=== PATIENT | male | born 1955 | race Caucasian/White ===

== ENCOUNTER 2021-02-10 06:24 | Day surgery (SDC) | payer OTHER ==
[~2021-02-10] VITALS: Ht 167.6 cm; Wt 86.4 kg
[2021-02-10 07:04] VITALS: BP 100/63; Ht 167.6 cm; Wt 86.4 kg
[2021-02-10] MEDS ORDERED: BAYER CHEWABLE81 MG (07:09)
[2021-02-10] MEDS ORDERED: LIPITOR40 MG (07:10)
[2021-02-10] MEDS ORDERED: CHLORTHALIDONE25 MG (07:11)
[2021-02-10] MEDS ORDERED: ZYRTEC10 MG (07:11)
[2021-02-10] MEDS ORDERED: LISINOPRIL20 MG (07:12)
[2021-02-10] MEDS ORDERED: TOPROL XL100 MG (07:13)
[2021-02-10] MEDS ORDERED: NITROSTAT0.4 MG (07:14)
[2021-02-10] MEDS ORDERED: SINGULAIR10 MG (07:14)
--- NOTE | 2021-02-10 09:32 | HP ---
PATIENT: RONAL BARBER MEDICAL RECORD: [id number] ACCOUNT: [id number] [facility] 55 ADMISSION DATE: 02/10/21 PCP: No PCP HISTORY AND PHYSICAL EXAMINATION HISTORY OF PRESENT ILLNESS: The patient states he feels like he has something stuck in his throat. It is difficult to swallow. It really does not cause pain with swallowing. His reflux is controlled on a PPI. He does not have volume reflux. He does have an umbilical hernia. No epigastric pain. He does have a diastasis rectus. He states he has had these symptoms since 2004. PAST MEDICAL AND SURGICAL HISTORY: History of myocardial infarction, hypertension. He has had a pacemaker, history of coronary stent, gastroesophageal reflux, arthritis. Benign prostatic hypertrophy, also COPD, coronary artery disease, hypercholesterolemia. SOCIAL HISTORY: Former smoker, [place]. HOME MEDICINES: Reviewed. ALLERGIES: VERAPAMIL. PHYSICAL EXAMINATION: GENERAL: The patient does not appear acutely ill. He does not appear chronically ill. VITAL SIGNS: Reviewed. EARS: External ears appear normal. EYES: Extraocular movements are intact. NECK: Trachea is midline. CHEST: No intercostal retractions. PULMONARY: Nonlabored. No stridor. IMPRESSION: 1. Dysphagia. 2. The sensation of something stuck in the back of his throat. PLAN: EGD with esophageal dilation. TRANSINT:[id number] Voice Confirmation ID: [id number] DOCUMENT ID: [id number] BETZAIDA LOCKETT MD at 0932 CC: [id number] DICTATION DATE: 02/10/21905 DESIZING PAD OPERATOR: 02/10/21 0921 [facility] [address] [id number]
--- NOTE | 2021-02-10 10:42 | NUR ---
1033 PROVIDED WITH DISCHARGE INFORMATION INCLUDING SHEET LISTING NSAIDS TO AVOID, MED REC, & [facility] POSTENDOSCOPY D/C INSTRUCTIONS. COPIES OF H&P, PROGRESS NOTE & OP NOTE SENT TO [facility] WITH PT WELL. RELEASED FROM OPS IN W/C WITH [facility] GUARDS X'S 2 TO [facility] V[facility]. Neri PERRY R.N.
--- NOTE | 2021-02-12 15:16 | OP ---
PATIENT NAME: RONAL BARBER MEDICAL RECORD: [id number] :55 LOCATION:D[facility] ADMISSION DATE: SURGEON: BETZAIDA LOCKETT MD DATE OF OPERATION: 02/10/2021 PREOPERATIVE DIAGNOSES: 1. Dysphagia. 2. Globus feeling in his throat. POSTOPERATIVE DIAGNOSES: 1. Dysphagia. 2. Globus feeling in his throat. 3. No structural abnormality noted. There is an inlet patch, small hiatal hernia, normal stomach, otherwise normal duodenum. PROCEDURE PERFORMED: 1. Esophagogastroduodenoscopy with antral biopsies to rule out Helicobacter pylori. 2. Esophageal dilation with a 60-Brazilian zvuxywm-pqq-wfhzzyiu balloon. SURGEON: Dr. Lockett. STATION MECHANIC HELPER: None. BLOOD LOSS: Minimal. ANESTHESIA: IV sedation. COMPLICATIONS: None. The risks, possible complications, and alternatives of procedure were explained to the patient. He elects to proceed. The discussion specifically included, but was not limited to bleeding requiring emergency reoperation, infection, endoscopic perforation. ENDOSCOPIC COURSE: The patient was conveyed to endoscopy suite electively on 02/10/2021. IV sedation was induced by the anesthesia staff. A bite block was inserted. A gastroscope was inserted into the mouth. It was advanced easily into the hypopharynx. The esophagus was easily intubated as were the stomach and duodenum. Upon withdrawal, retroflexed and angulus views were obtained. Antral biopsies were obtained to rule out H. pylori. I then traveled up the esophagus into the hypopharynx back down 3 times searching for anything that could be causing his symptoms. The hypopharynx appeared normal. The cords appeared normal. I noted no Meckel's diverticulum. There was an inlet patch that was about 7-8 cm down his esophagus and this was at the 3 o'clock position and is very unlikely to be causing his symptoms. I then advanced in the cardia of the stomach. I advanced iipbllr-uls-eqhyktng balloon. I sequentially dilated the entire length of the esophagus to 60-Brazilian. The balloon dilator and gastroscope were then withdrawn. I then readvanced the gastroscope. Again, I found no evidence of false passage or perforation. No evidence of a structural problem that could be causing his symptoms. The gastroscope was then withdrawn. OPERATIVE REPORT [id number] RONAL BARBER I then performed an oral examination of the tonsillar fossa and did not identify a structural problem there, although this was a suboptimal visualization. I do not think the patient has a Zenker's diverticulum. I would recommend that he undergo an ENT examination including nasopharyngoscopy. There is no need for the patient to follow up with me in the office unless he develops a complication related to this operative procedure. If I need to see him again, I could do this out at the intermediate on one of my GI clinic days. TRANSINT:[id number] Voice Confirmation ID: [id number] DOCUMENT ID: [id number] cc: Poly Franco APN, BETZAIDA Millan MD at 1516 CC: [id number] DICTATION DATE: 02/10/21 0945 CARDIOLOGY ASSOCIATE: 02/10/21 1009 [facility] 02/10/[address] [address]
== END 2021-02-10 10:33 ==
LOC: D.OPS 06:24
PROVIDERS: ATTEND Surgery
DX: R13.10 Dysphagia, unspecified (principal); K44.9 Diaphragmatic hernia without obstruction or gangrene; K22.9 Disease of esophagus, unspecified; I25.2 Old myocardial infarction; I10 Essential (primary) hypertension; Z95.0 Presence of cardiac pacemaker; K21.9 Gastro-esophageal reflux disease without esophagitis; I25.10 Atherosclerotic heart disease of native coronary artery without angina pectoris; E78.00 Pure hypercholesterolemia, unspecified; J44.9 Chronic obstructive pulmonary disease, unspecified